=== PATIENT | female | born 1970 | race Caucasian/White ===

== ENCOUNTER 2019-07-28 22:27 | Emergency (ER) | payer OTHER ==
[~2019-07-28] VITALS: Ht 152.4 cm; Wt 68.9 kg
[2019-07-28 22:35] VITALS: Ht 152.4 cm; Wt 68.9 kg
[2019-07-29 01:14] VITALS: BP 125/71
== END 2019-07-29 01:14 | disposition home or self-care (01) ==
LOC: ED 22:27
DX: R51 Headache (principal); M54.12 Radiculopathy, cervical region
CPT/HCPCS: J1885